=== PATIENT | female | born 1950 | race Caucasian/White ===

== ENCOUNTER 2019-01-22 18:23 | Observation (INO) | payer OTHER, SELFPAY ==
[2019-01-22 19:35] LABS: Bacteria/HPF None Seen HPF (None Seen); Bilirubin Negative (Negative); Blood, Urine Negative (Negative); Clarity Clear (Clear); Glucose, Urine (Dipstick) Normal (Negative); Leukocyte 25 Leu/uL (Negative); Nitrite Negative (Negative); Protein, Urine (Dipstick) Negative (Neg-Trace); RBC/HPF None Seen HPF (0-3); Squamous Epithelial 0-3 HPF (0-3); Urobilinogen Normal mg/dL (Less than 2); WBC/HPF 0-3 HPF (0-3)
[2019-01-22 19:45] LABS: #Basophils 0.1 thou/uL (0.0-0.2); #Eosinphils 0.2 thou/uL (0.0-0.7); #Lymphocytes 1.7 thou/uL (1.20-3.40); #Monocytes 0.5 thou/uL (0.11-0.59); %Eosinophils 3.1 % (0.0-10.0); %Lymphocytes 26.5 % (21.0-51.0); %Monocytes 8.1 % (0.0-10.0); %Neutrophils 61.4 % (42.0-75.0); Hemoglobin 11.3 g/dL (12.0-16.0); Mean Corpuscular HGB CONC 32.6 g/dL (32.0-36.0); Mean Corpuscular Hemoglobin 27.1 pg (27.0-31.0); Mean Platelet Volume 8.3 fL (7.4-10.4); Platelet Count 199 thou/uL (130-400); RBC Distribution Width 13.5 % (11.5-14.5); Red Blood Cell (RBC) Count 4.18 mill/uL (4.20-5.40); White Blood Cell (WBC) Count 6.5 thou/uL (4.8-10.8)
--- NOTE | 2019-01-22 19:49 | RAD ---
PORTABLE CHEST: 01/22/19 PROVIDED CLINICAL HISTORY: Fall and tremors. FINDINGS: Comparison 05/31/12. Evaluation is limited by patient body habitus. The cardiac silhouette appears enlarged which may be a t least partially on the basis of portable technique. No focal consolidation, pleural fluid or pneumo thorax apparent. IMPRESSION: No evidence for an acute cardiopulmonary process. POS: LESLIE
[2019-01-22 19:50] LABS: PTT 26.7 SEC (22.9-36.1); Prothrombin Time 12.9 SEC (12.0-14.7)
[2019-01-22 20:10] LABS: ALT (SGPT) 11 U/L (8-55); AST (SGOT) 14 U/L (5-34); Albumin 3.6 g/dL (3.4-4.8); Alkaline Phosphatase 51 U/L (40-110); Anion Gap 10 mmol/L (10-20); BUN (Urea Nitrogen) 11 mg/dL (9.8-20.1); Bilirubin, Total 0.2 mg/dL (0.2-1.2); Calc. Creatinine Clearance 0 mL/min (70-130); Calcium 8.4 mg/dL (7.8-10.44); Carbon Dioxide 24 mmol/L (23-31); Chloride 111 mmol/L (98-107); Estimated GFR-MDRD 42; Globulin 2.7 g/dL (2.4-3.5); Glucose 79 mg/dL (80-115); Potassium 4.2 mmol/L (3.5-5.1); Protein, Total 6.3 g/dL (6.0-8.3); Sodium 141 mmol/L (136-145)
--- NOTE | 2019-01-22 20:10 | CT ---
CT BRAIN NONCONTRAST: DATE: 01/22/2019 HISTORY: 68-year-old female on anticoagulation therapy status post acute head trauma from fall, and experienci ng tremors. FINDINGS: There is no evidence of acute intra-axial or extra-axial hemorrhage. There is no midline shift or any other mass effect. There is no extra-axial fluid collection. There is no evidence of obstructive hydrocephalus. Calvarium is intact. Midline posterior upper scalp contusion and overlying skin staple s. IMPRESSION: 1. No acute intracranial findings. 2. Acute, traumatic posterior scalp contusion and laceration.
[2019-01-22] MEDS ORDERED: Acetaminophen 325 MG TAB PO PRN (22:33)
[2019-01-22] MEDS ORDERED: Ondansetron PF 4 MG/2 ML Vial IVP PRN (22:33)
[2019-01-22] MEDS ORDERED: Ondansetron ODT 4 MG TAB SL PRN (22:33)
[2019-01-22 22:41] VITALS: BMI 36.6
--- NOTE | 2019-01-22 23:20 | PDOC.FPRHP ---
- History of Present Illness Chief Complaint: shaking limbs History of Present Illness: Patient is a 68F with PMHx of multiple TIAs & CVAs, HTN, HLD, asthma, COPD, migraines, hypothyroidism, and uterine cancer presenting after limbs starting shaking and she felt weak today. Per patient this past Saturday she tripped, fell, and hit her head. She was evaluated in the ED and found to have a posterior scalp head laceration that was repaired. Her head CT was negative. She states that today her lower limbs started to shake, and then it progressed up her body to her back so that her entire body was shaking and she slid out of her chair. She states that she was alert and aware during the entire episode, and can recall everything that happened. States that this has never happened before. She now feels steady on her feet. Denies urinary/fecal incontinence, cp , sob, abd pain. Denies parasthesias/numbness/weakness in any of her limbs. She just reports that she feels unsteady on her feet. Reports that previous CVA 3mo ago left her with some speech stuttering and decreased memory, but she otherwise has no other deficits from her previous strokes. ED Course: 1L NS - Allergies/Adverse Reactions Allergies Allergy/AdvReac Type Severity Reaction Status Date / Time codeine Allergy Verified 01/22/19 22:38 Penicillins Allergy Verified 01/22/19 22:38 - Home Medications Medication Instructions Recorded Confirmed Type Amitriptyline HCl 25 mg PO HS 01/23/19 01/23/19 History Bupropion HCl [buPROPion HCl XL] 150 mg PO BID 01/23/19 01/23/19 History Clopidogrel Bisulfate [Clopidogrel] 75 mg PO DAILY 01/23/19 01/23/19 History Gabapentin 600 mg PO HS 01/23/19 01/23/19 History Levothyroxine Sodium [Euthyrox] 50 mcg PO DAILY 01/23/19 01/23/19 History Pantoprazole [Protonix] 40 mg PO DAILY 01/23/19 01/23/19 History Pravastatin Sodium [Pravachol] 40 mg PO HS 01/23/19 01/23/19 History Propranolol [Inderal] 20 mg PO BID 01/23/19 01/23/19 History Sertraline HCl 50 mg PO HS 01/23/19 01/23/19 History Sucralfate 1 gm PO TID 01/23/19 01/23/19 History Topiramate [Topamax] 100 mg PO TID 01/23/19 01/23/19 History traMADol HCl [Tramadol HCl] 50 mg PO Q6HR PRN 01/23/19 01/23/19 History traZODone HCl [Trazodone HCl] 50 mg PO HS 01/23/19 01/23/19 History - History PMHx:multiple TIAs & CVAs, HTN, HLD, asthma, COPD, migraines, hypothyroidism, and uterine cancer PSHx: c/s x2, cholecystectomy, ex lap (for endometriosis?), hysteroscopy, hysterectomy FHx: sister- epilepsy; mother-CHF, pacemaker Social: 3/4 ppd smoker, no drugs, no etoh - Review of Systems General: denies: fever/chills, weight/appetite/sleep changes Eyes: denies: eye pain, vision changes ENT: reports: rhinorrhea Respiratory: reports: cough. denies: shortness of breath Cardiovascular: denies: chest pain, palpitation Gastrointestinal: reports: diarrhea. denies: nausea, vomiting Genitourinary: denies: incontinence, dysuria Skin: denies: rashes, lesions Musculoskeletal: denies: pain, tenderness Neurological: reports: other (unsteadyness; shaking limbs) Psychological: denies: anxiety, depression - Vital signs BP: [133/57] HR: [68] RR: [18] Tmax: [97.9] Pox: [98]% on [RA] Wt: [90.7kg] - Physical Exam Constitutional: NAD, awake, alert and oriented HEENT: EOMI, grossly normal vision, grossly normal hearing, MMM, other (left beating nystagmus on left) Neck: supple, trachea midline Chest: no-tender to palpation, no lesions Heart: RRR, normal S1/S2 Lungs: CTAB, no respiratory distress, good air movement Abdomen: soft, non-tender Musculoskeletal: normal structure, normal tone Neurological: CN II-XII intact, other (intention tremor both upper extremities, R lower extremity 4/5 strength, LLE 5/5 strength) Skin: no rash/lesions, good turgor Heme/Lymphatic: no unusual bruising or bleeding, no purpura Psychiatric: normal mood and affect, intact recent and remote memory FMR H&P: Results - Labs Result Diagrams: 01/22/19 19:35 01/22/19 19:35 Lab results: WBC 6.5 thou/uL (4.8-10.8) 01/22/19 19:35 Hgb 11.3 g/dL (12.0-16.0) L 01/22/19 19:35 Hct 34.7 % (36.0-47.0) L 01/22/19 19:35 MCV 83.0 fL (78.0-98.0) 01/22/19 19:35 Plt Count 199 thou/uL (130-400) 01/22/19 19:35 Neutrophils % 61.4 % (42.0-75.0) 01/22/19 19:35 Sodium 141 mmol/L (136-145) 01/22/19 19:35 Potassium 4.2 mmol/L (3.5-5.1) 01/22/19 19:35 Chloride 111 mmol/L (98-107) H 01/22/19 19:35 Carbon Dioxide 24 mmol/L (23-31) 01/22/19 19:35 BUN 11 mg/dL (9.8-20.1) 01/22/19 19:35 Creatinine 1.26 mg/dL (0.6-1.1) H 01/22/19 19:35 Glucose 79 mg/dL (80-115) L 01/22/19 19:35 Calcium 8.4 mg/dL (7.8-10.44) 01/22/19 19:35 Total Bilirubin 0.2 mg/dL (0.2-1.2) 01/22/19 19:35 AST 14 U/L (5-34) 01/22/19 19:35 ALT 11 U/L (8-55) 01/22/19 19:35 Alkaline Phosphatase 51 U/L (40-110) 01/22/19 19:35 Serum Total Protein 6.3 g/dL (6.0-8.3) 01/22/19 19:35 Albumin 3.6 g/dL (3.4-4.8) 01/22/19 19:35 Urine Ketones Negative mg/dL (Negative) 01/22/19 19:15 Urine Blood Negative (Negative) 01/22/19 19:15 Urine Nitrite Negative (Negative) 01/22/19 19:15 Ur Leukocyte Esterase 25 Nasima/uL (Negative) 01/22/19 19:15 Urine RBC None Seen HPF (0-3) 01/22/19 19:15 Urine WBC 0-3 HPF (0-3) 01/22/19 19:15 Ur Squamous Epith Cells 0-3 HPF (0-3) 01/22/19 19:15 Urine Bacteria None Seen HPF (None Seen) 01/22/19 19:15 - EKG Interpretation EKG: NSR, low voltage - Radiology Interpretation CT scan - head Status: report reviewed by me (No acute intracranial abnormalities, acute traumatic posterior scalp contusion and laceration) FMR H&P: A/P - Problem List (1) Unstable gait Current Visit: Yes Status: Acute Code(s): R26.81 - UNSTEADINESS ON FEET (2) LYNSEY (acute kidney injury) Current Visit: Yes Status: Acute Code(s): N17.9 - ACUTE KIDNEY FAILURE, UNSPECIFIED (3) Migraine Current Visit: Yes Status: Chronic Code(s): G43.909 - MIGRAINE, UNSP, NOT INTRACTABLE, WITHOUT STATUS MIGRAINOSUS (4) Hx of TIA (transient ischemic attack) and stroke Current Visit: Yes Status: Chronic Code(s): Z86.73 - PRSNL HX OF TIA (TIA), AND CEREB INFRC W/O RESID DEFICITS (5) Asthma Current Visit: Yes Status: Chronic Code(s): J45.909 - UNSPECIFIED ASTHMA, UNCOMPLICATED (6) COPD (chronic obstructive pulmonary disease) Current Visit: Yes Status: Chronic (7) HTN (hypertension) Current Visit: Yes Status: Chronic Code(s): I10 - ESSENTIAL (PRIMARY) HYPERTENSION (8) HLD (hyperlipidemia) Current Visit: Yes Status: Chronic Code(s): E78.5 - HYPERLIPIDEMIA, UNSPECIFIED - Plan Patient is a 68F with PMHx of multiple TIAs & CVAs, HTN, HLD, asthma, COPD, migraines, hypothyroidism that is admitted to obs for unstable gait, possible stroke r/o. #Unstable gait, shaking limbs -uncertain etiology at this time -does not appear to be seizure-like activity as patient reports she was actively awake during the entire episode -patient has hx of migraines, could be neurological migraine -neurology consult, appreciate recs -TSH, folate, B12, RPR, MELANIE, ESR to r/o other etiologties #Hx of TIA -CT head shows no acute intracranial process -patient does not have the "shaking limbs" symptoms on exam at this time -will continue to monitor #LYNSEY vs CKD -creatinine 1.26, GFR 42 -patient's baseline unknown, creatinine 0.96 in 2013 -IVF, continue to monitor #Migraines -chronic, stable -symptoms possible due to neurological migraine -continue home meds #Asthma -continue home meds #COPD -continue home meds #HTN -BP stable on evaluation -continue home meds #HLD -continue home meds #Hypothyroidism -TSH pending -continue home meds Diet: regular DVT ppx: SCDs Code: DNR Dispo: stroke obs for monitoring, neurology consult in am FMR H&P: Upper Level - Pertinent history 68 yo F here with complaint of progressive extremity weakness and periods of uncontrollable extremity shaking. She most recently had a TIA 3-4 months ago and was worked up in [facility]. Since then she has had trouble with word finding. She also notes that she has progressively had more trouble walking and it has been suggested by her PCP that she use a cane or walker. She has had frequent falls over the last few months to include a mechanical fall 4 days ago that resulted in needing dixie on her occiput. She states that previously her L leg has randomly had periods where it would shake uncontrollably for about 1 min. Today all 4 extremities began to shake at home and became weak. This prompted a ER visit. She denies loss of consciousness and remembers the events. She denies hx of seizure. In the ED she was back to her baseline function. CT was negative. There were no significant lab abnormalities outside of a mild anemia and elevated creatinine. PMHx CAD Migraine Hypothyroid HLD Surgical hx Hysterectomy C section x2 Ex lap Social 30 pack year hx of cigarette smoking. Denies etoh and recreational drugs - Pertinent findings See finance intern note for full ROS, PE, vitals, and labs ROS General Denies fever, chills CV Denies CP or palpitation Resp Denies SOB or cough GI denies n/v/d/c or abdominal pain denies increased frequency or dysuria Neuro complains of falls and shaking limbs. Denies numbness, weakness, LOC PE General A&O x4, NAD HEENT NCAT CV RRR, no murmur Resp CTA Abd soft, normal bowel sounds Extremities normal strength and ROM. No edema Neuro CN II-XII intact, normal cerebellar testing, normal sensation. No focal deficits - Plan Date/Time: 01/22/19 2320 I, Chaitanya Lopez, DO, have evaluated this patient and agree with findings/plan as outlined by finance intern resident. Pertinent changes/additions are listed here. 1.Unstable gait -Unclear as to origin of shaking extremities, however the progressive weakness is concerning. Due to some amount of work being done at outside hospitals, will request those records in the morning -Will check basic labs, autoimmune and inflammatory markers and consult neurology -Check TSH, B12/Folate, and RPR 2.Hx of TIA -No apparent vascular source at this time. Continue to monitor on stroke unit 3.LYNSEY vs CKD -No known hx of CKD, however there is also no cause for concern for LYNSEY. Will continue to monitor BMP and start maintenance fluids. 4.Migraine -Restart home meds See finance intern portion for management of other chronic problems PPx SCD Diet Regular Code DNAR
[2019-01-22] MEDS ORDERED: Nicotine 14 MG PATCH TD SCH (23:30)
[2019-01-23] MEDS: Lactated Ringer's 1,000 ML IV SCH ×2 (03:42→12:05)
[2019-01-23 05:07] LABS: #Eosinphils 0.2 thou/uL (0.0-0.7); #Lymphocytes 1.9 thou/uL (1.20-3.40); #Monocytes 0.4 thou/uL (0.11-0.59); #Neutrophils 1.8 thou/uL (1.40-6.50); %Basophils 0.6 % (0.0-1.0); %Eosinophils 4.4 % (0.0-10.0); %Lymphocytes 43.8 % (21.0-51.0); %Monocytes 9.3 % (0.0-10.0); %Neutrophils 41.9 % (42.0-75.0); Hemoglobin 10.6 g/dL (12.0-16.0); Mean Corpuscular HGB CONC 32.1 g/dL (32.0-36.0); Mean Corpuscular Volume 84.1 fL (78.0-98.0); Mean Platelet Volume 8.2 fL (7.4-10.4); Platelet Count 193 thou/uL (130-400); RBC Distribution Width 13.5 % (11.5-14.5); Red Blood Cell (RBC) Count 3.93 mill/uL (4.20-5.40); White Blood Cell (WBC) Count 4.3 thou/uL (4.8-10.8)
[2019-01-23 05:30] LABS: Anion Gap 10 mmol/L (10-20); BUN (Urea Nitrogen) 9 mg/dL (9.8-20.1); Calc. Creatinine Clearance 67 mL/min (70-130); Calcium 8.4 mg/dL (7.8-10.44); Carbon Dioxide 24 mmol/L (23-31); Chloride 113 mmol/L (98-107); Estimated GFR-MDRD 46; Glucose 93 mg/dL (80-115); Potassium 3.7 mmol/L (3.5-5.1); Sodium 143 mmol/L (136-145)
[2019-01-23 05:50] LABS: Syphilis Antibody Nonreactive (Nonreactive); Syphilis Antibody Index 0.07 S/CO (<1.00 Non-Reactive)
--- NOTE | 2019-01-23 06:12 | PDOC.FM ---
- Subjective Subjective: Pt denies any shaking overnight or this morning. C/o Left sided neck pain, soreness from fall on Saturday. Denies chest pain. Tele monitoring: SP in 70's. ST depression. - Objective MAR Reviewed: Yes Vital Signs & Weight: Vital Signs (12 hours) Temp Pulse Resp BP Pulse Ox 01/23/19 04:00 97.8 F 67 18 105/51 L 95 01/22/19 22:17 97.7 F 73 19 117/55 L 100 Weight Weight 90.764 kg I&O: 01/21/19 01/22/19 01/23/19 06:59 06:59 06:59 Intake Total 685 Balance 685 Result Diagrams: 01/23/19 04:51 01/23/19 04:51 Radiology Reviewed by me: Yes (CT head neg. CXR normal. ) Phys Exam - Physical Examination Constitutional: NAD HEENT: moist MMs, sclera anicteric Neck: no nodes, no JVD, supple, full ROM Bilateral hypertonicity of cervical paraspinal muscles C3-C6. Respiratory: no wheezing, no rales, no rhonchi, clear to auscultation bilateral Cardiovascular: RRR, no significant murmur, no rub distant heart sounds. Gastrointestinal: soft, non-tender, no distention, positive bowel sounds Musculoskeletal: no edema, pulses present Neurological: non-focal, normal sensation, moves all 4 limbs Psychiatric: normal affect, A&O x 3 Skin: no rash, normal turgor, cap refill <2 seconds Dx/Plan (1) LYNSEY (acute kidney injury) Code(s): N17.9 - ACUTE KIDNEY FAILURE, UNSPECIFIED Status: Acute (2) Unstable gait Code(s): R26.81 - UNSTEADINESS ON FEET Status: Acute (3) COPD (chronic obstructive pulmonary disease) Status: Chronic (4) HLD (hyperlipidemia) Code(s): E78.5 - HYPERLIPIDEMIA, UNSPECIFIED Status: Chronic (5) HTN (hypertension) Code(s): I10 - ESSENTIAL (PRIMARY) HYPERTENSION Status: Chronic (6) Hx of TIA (transient ischemic attack) and stroke Code(s): Z86.73 - PRSNL HX OF TIA (TIA), AND CEREB INFRC W/O RESID DEFICITS Status: Chronic (7) Migraine Code(s): G43.909 - MIGRAINE, UNSP, NOT INTRACTABLE, WITHOUT STATUS MIGRAINOSUS Status: Chronic - Plan Plan: Patient is a 68F with PMHx of multiple TIAs & CVAs, HTN, HLD, asthma, COPD, migraines, hypothyroidism that is admitted to obs for unstable gait, possible stroke r/o. 1. Unstable gait, shaking limbs -uncertain etiology at this time -does not appear to be seizure-like activity as patient reports she was actively awake during the entire episode -patient has hx of migraines, could be neurological migraine -neurology consult, appreciate recs -TSH: 2.3497, folate pending, B12: 245, RPR non-reactive, MELANIE, ESR to r/o other etiologties 2. Hx of TIA -CT head shows no acute intracranial process -patient does not have the "shaking limbs" symptoms on exam at this time -will continue to monitor 3. LYNSEY vs CKD -creatinine 1.26--> 1.16, GFR 42--> 46 -patient's baseline unknown, creatinine 0.96 in 2012 -IVF, continue to monitor 4. Migraines -chronic, stable -symptoms possible due to neurological migraine -continue home meds 5. Asthma -continue home meds 6. COPD -continue home meds 7. HTN -BP stable on evaluation -continue home meds 8. HLD -continue home meds 9. Hypothyroidism -TSH pending -continue home meds Diet: regular DVT ppx: SCDs Code: DNR Dispo: stroke obs for monitoring, Stable. Addendum - Attending - Attending Attestation Date/Time: 01/23/19 6101 I personally evaluated the patient and discussed the management with Dr. Houston. I agree with the History, Examination, Assessment and Plan documented above with any addition or exceptions noted below. The patient was sitting up in a chair. She has ambulated with physical therapy. She is on a number of medications that could cause pt's unsteadiness. Will try to adjust meds. Awaiting neurology consult.
[2019-01-23] MEDS ORDERED: Prevnar 13-Val Conj/PF 0.5 ML SYRINGE IM ONE ×2 (09:00→21:00)
[2019-01-23] MEDS: Nicotine 14 MG PATCH TD SCH (10:00)
[2019-01-23 10:14] LABS: Iron 36 ug/dL (50-170); Iron Binding Capacity, Total 299 mcg/dL (265-497)
--- NOTE | 2019-01-23 10:43 | CON ---
DATE OF CONSULTATION: 01/23/2019 CONSULTING PHYSICIAN: [facility]. IMPRESSION: Frequent falls of uncertain etiology. PLAN: 1. Orthostatic vital signs. 2. B12 level. 3. Physical therapy evaluation. 4. MRI of the brain. HISTORY OF PRESENT ILLNESS: This is a 68-year-old white female with a history of chronic migraine, who reports that over the last 6 weeks she has had several falls. She feels weak and loses her balance. She has felt a bit lightheaded, but has not lost consciousness. She had some minor injuries and had to have stitches on her scalp secondary to one of the falls. She decided to come to the hospital for evaluation. She denies any vertigo, nausea, vomiting, lateralized weakness, or numbness. She is complaining of a migraine at this point. She was previously seen by Dr. Frost in [place], but has not seen a neurologist in several years. Since admission, she had a CT scan of the brain, which was normal. Her laboratory studies including CBC, coags, chemistry panel, and urinalysis were all unremarkable. PAST MEDICAL HISTORY: Migraine headaches. ALLERGIES: CODEINE AND PENICILLIN. SOCIAL HISTORY: No tobacco or alcohol. FAMILY HISTORY: Noncontributory. REVIEW OF SYSTEMS: Ten-system review of systems is otherwise negative. PHYSICAL EXAMINATION: VITAL SIGNS: Blood pressure 105/51, pulse 67, respirations 18, and temperature 97.8. HEENT: Pupils are equal and reactive. Conjunctivae clear. Oropharynx clear. Cranium, normocephalic. NECK: Supple. No lymphadenopathy. EXTREMITIES: No cyanosis, clubbing, or edema. NEUROLOGIC: She was alert and cooperative. Her speech is fluent and clear. Cranial nerves 2 through 12 are intact. Motor exam shows good strength bilaterally. Sensations intact to light touch. There is no tremor or dysmetria present. No abnormal movements were seen other than some mild tremor on postural extension. Gait was not tested at this point. SUMMARY: This is a 68-year-old woman, who reports frequent falls over the last 6 weeks. She has relatively low blood pressure. See if she is possibly orthostatic secondary to her amitriptyline. Complete her workup as I have suggested. Job ID: [id number]
[2019-01-23 11:01] LABS: Folate (Folic Acid) 4.3 ng/mL (7.0-31.4)
[2019-01-23] MEDS ORDERED: Lorazepam 2 MG/ML VIAL SLOW IVP SCH (14:07)
[2019-01-23] MEDS ORDERED: traMADol HCl 50 MG TAB PO PRN (15:10)
--- NOTE | 2019-01-23 17:49 | MRI ---
MRI BRAIN WITHOUT CONTRAST: 01/23/19 INDICATIONS: TIA. Ventricles have normal size and position. Moderate chronic ischemic white matter change is noted. Patient motion degrades the sequences. No evidence of restricted diffusion. No evidence of acute infarct, mass, or edema. The intracranial internal carotid arteries and cerebral arteries show expected flow voids. Mucosa edema in the left maxillary sinus. Mild mucosa edema in the right mastoid air cells. IMPRESSION: 1. Mild to moderate chronic ischemic white matter change. 2. No acute intracranial process. POS: RAIN
[2019-01-23] MEDS ORDERED: cloNIDine 0.1 MG TAB PO PRN (18:23)
[2019-01-23] MEDS ORDERED: Gabapentin 300 MG CAP PO SCH (21:00)
[2019-01-23] MEDS ORDERED: Atorvastatin Calcium 10 MG TAB PO SCH (21:00)
[2019-01-23] MEDS ORDERED: traZODone HCl 50 MG TAB PO SCH (21:00)
[2019-01-23] MEDS: Propranolol 10 MG TAB PO SCH (21:19)
[2019-01-23] MEDS: Bupropion 150 MG XL TAB PO SCH (21:20)
[2019-01-23] MEDS: Topiramate 100 MG TAB PO SCH (21:20)
[2019-01-23] MEDS: Sucralfate 1 GM TAB PO SCH (21:21)
--- NOTE | 2019-01-24 05:56 | PDOC.FM ---
- Subjective Subjective: Mrs. Ramos was resting pleasantly in her bed at the time of evaluation. She denied any overnight events or repeat episodes of tremors, and stated that she was tolerating PO intake well and had no episodes of headaches, chest pain, shortness of breath, abdominal pain, dysuria or problems passing stool. - Objective Vital Signs & Weight: Vital Signs (12 hours) Temp Pulse Resp BP BP Pulse Ox 01/24/19 04:00 98.2 F 65 18 127/82 96 01/23/19 23:42 98.3 F 73 18 139/63 95 01/23/19 20:00 98.3 F 73 16 150/71 H 99 Weight Weight 90.764 kg I&O: 01/22/19 01/23/19 01/24/19 06:59 06:59 06:59 Intake Total 685 977 Balance 685 977 Result Diagrams: 01/23/19 04:51 01/23/19 04:51 Phys Exam - Physical Examination Constitutional: NAD HEENT: PERRLA, moist MMs, sclera anicteric, oral pharynx no lesions Neck: supple, full ROM Respiratory: no wheezing, no rales, no rhonchi, clear to auscultation bilateral Cardiovascular: RRR, no significant murmur, no rub Gastrointestinal: soft, non-tender, no distention Musculoskeletal: no edema, pulses present Neurological: non-focal, moves all 4 limbs Psychiatric: normal affect Skin: no rash Dx/Plan - Plan Plan: 1. Tremors -Unstable gait and shaking limbs in history of recent fall and migraines -Patient reports a fall outside of a local store that caused her to his her heat on the curb -Tremor does not appear seizure-like, patient confirmed consciousness during episodes -Neurology Consult (01/23): Consider Amitriptyline as source of orthostatic hypotension -TSH: 2.3497 -Folate: 4.3 -B12: 245 -RPR: Non-Reactive 2. Hx of TIA -CXR: NAF -CT Head: NAF -MRI Brain: Chronic Changes, NAF -Patient reports no additional episodes of "shaking limbs" at this time -Will continue to monitor 3. LYNSEY vs CKD -Cr: 1.26 > 1.16 -GFR: 42 > 46 -Unknown baseline -s/p fluid resuscitation 4. Migraines -Chronic, stable -Consider Neurologic Migraine as source of tremors -Per Neuro, consider DC'ing Amitriptyline to reduce likelihood of orthostasis -F/U as outpatient 5. Asthma -Continue home meds 6. COPD -Continue home meds 7. HTN -BP: 109/55 on 01/24/19 -Continue home meds 8. HLD -Continue home meds 9. Hypothyroidism -TSH: 2.3 on 01/23/19 -Continue home meds DVT PPx: SCDs Code: DNR Diet: Regular Dispo: Currently stable on Tele Obs - DC later this afternoon. Brain MRI revealed NAF and Neurology suggested Amitriptyline as cause of orthostatic hypotension. Consider DC'ing Amitriptyline as outpatient, per recommendations of Neuro. Ensure adequate PO intake and consider OTC Folate. LOS < 12H. Addendum - Attending - Attending Attestation Date/Time: 01/24/19 0008 I personally evaluated the patient and discussed the management with Dr. Nettles. I agree with the History, Examination, Assessment and Plan documented above with any addition or exceptions noted below. MRI negative for acute findings. Will hold amitriptyline as it could be contributing to orthostasis. Can d/c home.
[2019-01-24] MEDS ORDERED: Levothyroxine Sodium 50 MCG TAB PO SCH (06:00)
[2019-01-24] MEDS ORDERED: Cyanocobalamin (Vitamin B-12) 1,000 MCG TAB PO SCH (09:00)
[2019-01-24] MEDS ORDERED: Aspirin 81 mg Enteric Coated Tablet PO SCH (09:00)
[2019-01-24] MEDS ORDERED: Clopidogrel Bisulfate 75 MG TAB PO SCH (09:00)
[2019-01-24] MEDS: Sucralfate 1 GM TAB PO SCH (09:09)
[2019-01-24] MEDS: Bupropion 150 MG XL TAB PO SCH (09:10)
[2019-01-24] MEDS: Topiramate 100 MG TAB PO SCH (09:10)
[2019-01-24] MEDS: Propranolol 10 MG TAB PO SCH (09:10)
--- NOTE | 2019-01-24 09:54 | EKG ---
Test Reason : Blood Pressure : / mmHG Vent. Rate : 067 BPM Atrial Rate : 067 BPM P-R Int : 166 ms QRS Dur : 076 ms QT Int : 398 ms P-R-T Axes : 045 007 071 degrees QTc Int : 420 ms Normal sinus rhythm Low voltage QRS Septal infarct , age undetermined Inferior infarct , age undetermined Abnormal ECG Confirmed by TREMAYNE CARDONA D.O. ([id number]), video editor GABRIELLA GIFFORD ([id number]) on 01/24/2019 9:53:31 AM Referred By: Confirmed By:TREMAYNE CARDONA D.O.
[2019-01-24] MEDS: Nicotine 14 MG PATCH TD SCH (11:50)
[2019-01-24 11:56] VITALS: BP 132/60; TEMP 98.3
--- NOTE | 2019-01-25 13:59 | DIS ---
DATE OF ADMISSION: 01/22/2019 DATE OF DISCHARGE: 01/24/2019 RESIDENT: John Nettles MD ADMITTING ATTENDING: Rigo Whitmore MD DISCHARGE ATTENDING: Kate Waters MD CONSULTS: Dr. Jonn Wallace, Neurology. PROCEDURES: EKG demonstrating normal sinus rhythm with an inferior infarct, age undetermined. Brain CT showing no acute findings. Chest x-ray showing no evidence for acute cardiopulmonary processes. Brain MRI demonstrating [id number] chronic ischemic changes, notably throughout the white matter, however, no acute intracranial processes were noted. PRIMARY DIAGNOSIS: Orthostatic hypotension with resultant tremulousness. SECONDARY DIAGNOSES: History of transient ischemic attacks and cerebrovascular accidents, hypertension, hyperlipidemia, asthma, chronic obstructive pulmonary disease, migraine headaches, hypothyroidism, and uterine cancer. DISCHARGE MEDICATIONS: None. DISCONTINUED MEDICATIONS: 1. Aspirin 81 mg. 2. Atorvastatin 10 mg. 3. Bupropion 150 mg. 4. Vitamin D3 of 1000 units. 5. Clonidine 0.1 mg. 6. Clopidogrel 75 mg. 7. Vitamin B12 of 5000 mcg. 8. Gabapentin 600 mg. 9. Levothyroxine sodium 50 mcg. 10. Lorazepam 0.5 mg. 11. Nicotine patch 14 mg. 12. Pantoprazole 40 mg. 13. Propranolol 20 mg. 14. Sertraline 50 mg. 15. Sucralfate 1 g. 16. Topiramate 100 mg. 17. Tramadol 50 mg. 18. Trazodone 50 mg. HISTORY OF PRESENT ILLNESS/HOSPITAL COURSE: Ms. Ramos is a 68-year-old female with past medical history significant for multiple TIAs, CVAs, hypertension, hyperlipidemia, asthma, COPD, migraines, hypothyroidism, and uterine cancer, who presented to the ED following episodes of tremulousness, where her limb started shaking and weakness with associated symptoms. She apparently tripped and fell on Saturday of the previous week, hitting her head. She was evaluated in the ED and found to have a posterior scalp laceration that was repaired without consequence. Head CT was negative, but she stated at the time of presentation to the ED for the second time that her limbs started to shake and progressed to upper body and back, so that her entire body was shaking and caused her to slide out of her chair. The patient states she was alert and awake during the entire episode and was able to recall the event clearly. She states that this has never happened before. She then felt unsteady on her feet. She denied urinary or fecal incontinence, chest pain, shortness of breath, or abdominal pain. Denied paresthesias, numbness, weakness in any of her limbs. She reported that she felt unsteady on her feet. She had a CVA 3 months ago that left her with some speech stuttering and decreased memory, but otherwise had no focal deficits from her previous strokes. The patient was evaluated by Neurology, who suggested the discontinuation of amitriptyline, as it was possibly causing her episodes of orthostatic hypotension that led to her repeat falls and subsequent tremulousness. On discharge, her vital signs were temperature of 98.3, pulse 69, blood pressure 132/60, respirations 24 per minute, and oxygen saturation 92 L on room air. LABORATORY VALUES: Demonstrate a white blood cell count of 4.3, hemoglobin 10.6 , hematocrit 33, and platelet count 193. Coagulation panel, PT 12.9, INR 1, and APTT 26.7. Chem panel demonstrating sodium of 143; potassium 3.7; chloride 113; carbon dioxide 24; BUN 9; creatinine 1.16, down from 1.26; and glucose 93. Iron 36, total iron-binding capacity 299, and ferritin 11.81. Vitamin B12 245, folate 4.3, and TSH 2.35. DISPOSITION: Stable. DISCHARGE INSTRUCTIONS: Location: Home. Diet: Heart healthy. Activity: As tolerated. Follow-Up: The patient was advised to discontinue her amitriptyline, per Neurology's recommendations, in order to help control her orthostatic hypotension and subsequent tremulousness. Additionally, due to low folate levels found incidentally during her hospital workup, she was advised to take OTC folate as desired. She was encouraged to follow up with her primary care physician in 7 to 14 days. Job ID: [id number] [facility]
== END 2019-01-24 12:01 | disposition home or self-care (01) ==
LOC: ERS 18:23 → 2SE 22:06
PROVIDERS: ADMIT Family Medicine; ATTEND Family Medicine
DX: I95.1 Orthostatic hypotension (principal); I10 Essential (primary) hypertension; E03.9 Hypothyroidism, unspecified; E78.5 Hyperlipidemia, unspecified; J44.9 Chronic obstructive pulmonary disease, unspecified; N17.9 Acute kidney failure, unspecified; G43.909 Migraine, unspecified, not intractable, without status migrainosus; F17.210 Nicotine dependence, cigarettes, uncomplicated; F32.9 Major depressive disorder, single episode, unspecified; Z66 Do not resuscitate; Z79.899 Other long term (current) drug therapy; Z86.73 Personal history of transient ischemic attack (TIA), and cerebral infarction without residual deficits; Z88.0 Allergy status to penicillin; Z88.5 Allergy status to narcotic agent; Z79.82 Long term (current) use of aspirin
CPT/HCPCS: 36415; 51701; 70450; 70551; 71045; 80048; 80053; 81003; 81015; 82607; 82728; 82746; 83540; 83550; 84443; 85025; 85610; 85730; 86780; 90471; 90670; 93005; 96360; 96361; 96374; A4353; G0009; G0378; J2060